=== PATIENT | male | born 1975 | race Caucasian/White ===

== ENCOUNTER 2021-10-27 10:58 | Emergency (ER) | payer OTHER ==
[~2021-10-27] VITALS: Ht 180.3 cm; Wt 115.9 kg
[2021-10-27] MEDS ORDERED: FLUO20CA36 PO (11:10)
[2021-10-27] MEDS ORDERED: KETOROLAC TROMETHAMINE 30 MG/ML VIAL IM ONE (11:45)
[2021-10-27 11:49] VITALS: BP 141/114
[2021-10-27] MEDS ORDERED: IBUP-2070 PO (12:26)
== END 2021-10-27 12:43 | disposition home or self-care (01) ==
LOC: EMS 10:58
DX: S83.011A Lateral subluxation of right patella, initial encounter (principal); F32.9 Major depressive disorder, single episode, unspecified; F17.210 Nicotine dependence, cigarettes, uncomplicated; X58.XXXA Exposure to other specified factors, initial encounter; Y93.89 Activity, other specified; Y92.89 Other specified places as the place of occurrence of the external cause; Y99.8 Other external cause status
CPT/HCPCS: 73562; 96372; 99283; J1885